=== PATIENT | male | born 1975 | race Caucasian/White ===

== ENCOUNTER 2016-11-18 01:46 | Emergency (ER) | payer MEDICAID, OTHER ==
[2016-11-18 01:52] VITALS: RESP 14; TEMP 98.4
--- NOTE | 2016-11-18 02:11 | EDPHY ---
H & P Stated Complaint: left hand injury, s/p [facility] fall Time Seen by Provider: 11/18/16 02:06 HPI/ROS: Chief Complaint: Left hand pain HPI: 41-year-old male was getting out of bed with to go to the bathroom when he had a mechanical fall landing on his left hand. He has pain over the distal 4th metacarpal. Patient states that it was initially quite painful and he felt a clicking in his hand. Happened about an hour ago. No other injuries. Does not have any history of injuries to the hand in the past. ROS: 10 point Review of Systems is negative except as noted in the HPI. PMH: None Medications: None Allergies: No known drug allergies Social History: [No] smoking, [no] alcohol, [ no recreational drug use] Family History: [non-contributory] Physical Exam: General: Awake, alert, no acute distress Left upper extremity: Left shoulder, nontender, full range of motion without pain Left elbow: Nontender, full range of motion without pain Left wrist: Nontender full range of motion without pain Left hand: Has tenderness with crepitus over the distal 3rd of the 4th metacarpal. He has your logically intact in the radial, median, and ulnar nerve distribution. Full flexion extension of his digits. Capillary refills less than 2 seconds. Skin: No rash - Personal History Current Tetanus Diphtheria and Acellular Pertussis (TDAP): Yes Tetanus Vaccine Date: 2012 - Medical/Surgical History Hx Asthma: No Hx Chronic Respiratory Disease: No Hx Diabetes: No Hx Cardiac Disease: No Hx Renal Disease: No Hx Cirrhosis: No Hx Alcoholism: Yes Hx HIV/AIDS: No Hx Splenectomy or Spleen Trauma: No Other PMH: denies - Social History Smoking Status: Former smoker Constitutional: Initial Vital Signs Temperature (C) 36.9 C 11/18/16 01:48 Heart Rate 69 11/18/16 01:48 Respiratory Rate 14 11/18/16 01:48 Blood Pressure 102/65 11/18/16 01:48 O2 Sat (%) 96 11/18/16 01:48 O2 Delivery Mode Room Air Allergies/Adverse Reactions: No Known Allergies Allergy (Unverified 07/06/10 14:43) Home Medications: Medication Instructions Recorded NK [No Known Home Meds] 11/18/16 Medical Decision Making - Diagnostics Imaging Results: Left hand x-ray: Left 4th metacarpal fracture, comminuted, nondisplaced Imaging: I viewed and interpreted images myself ED Course/Re-evaluation: Patient with comminuted left 4th metacarpal fracture. Patient has been placed in an ulnar gutter splint. I personally inspected the splint. Is good position with good perfusion. Patient was discharged with follow up with hand surgery referral. Departure - Departure Disposition: Home, Routine, Self-Care Clinical Impression: Hand fracture Condition: Good Instructions: Hand Fracture (ED), Hydrocodone/Acetaminophen (By mouth), Splint Care (ED) Additional Instructions: You may take ibuprofen for the pain. If you continues to have pain with ibuprofen you may take hydrocodone with acetaminophen. Follow up with Dr. Shaw, hand surgeon in the next 2-3 days. Call later this morning for an appointment. Referrals: Vinicius Shaw MD [Medical Doctor] - As per Instructions
[2016-11-18] MEDS ORDERED: HYDROCOD/APAP 5/325 PREPACK#6 BTL TAKEHOME ONE (03:02)
[2016-11-18 03:12] VITALS: BP 107/67; PULSE 71; O2SAT 95
== END 2016-11-18 03:12 | disposition home or self-care (01) ==
DX: S62.305A Unspecified fracture of fourth metacarpal bone, left hand, initial encounter for closed fracture (principal); Z87.891 Personal history of nicotine dependence; W18.39XA Other fall on same level, initial encounter; Y92.002 Bathroom of unspecified non-institutional (private) residence as the place of occurrence of the external cause
CPT/HCPCS: A4565